=== PATIENT | female | born 1970 | race Caucasian/White ===

== ENCOUNTER → 2023-11-11 08:54 | Outpatient (REF) | payer OTHER, SELFPAY | LOC: WDC 08:54 | PROVIDERS: ATTENDING PHYSICIAN Obstetrics & Gynecology; FAMILY PHYSICIAN Family Medicine | DX: R92.2 Inconclusive mammogram (principal) | CPT/HCPCS: 76641 ==

== ENCOUNTER → 2024-02-03 19:19 | Outpatient (REF) | payer OTHER, SELFPAY | LOC: WDC 19:19 | PROVIDERS: ATTENDING PHYSICIAN Obstetrics & Gynecology; FAMILY PHYSICIAN Family Medicine | DX: Z12.31 Encounter for screening mammogram for malignant neoplasm of breast (principal) | CPT/HCPCS: 77063; 77067 ==

== ENCOUNTER 2024-09-04 15:51 | Emergency (ER) | payer OTHER, SELFPAY ==
[2024-09-04 16:04] VITALS: BP 122/81
[2024-09-04 18:48] VITALS: BP 121/82
[2024-09-04 20:04] VITALS: BMI 22.0
--- NOTE | 2024-09-04 20:36 | ED.GENMED ---
History of Present Illness
General
Chief Complaint: Bowel Problem
Source: patient
Exam Limitations: none
Time Seen by Provider: 09/04/24 20:24
History of Present Illness
History of Present Illness:
This is a 54 year old female that comes in with c/o constipation. States that she feels she has a fecal impaction. States that she doesn't remember the last time she had a BM but feels that this is a couple days ago. States that she has abd bloating
and nausea. States that she also has a headache. Denies any fever, chills, chest pain, SOB, vomiting, diarrhea, dizziness, urinary burning.
Past History
Past History
ED Past Medical History: Other (Back pain, Headache, Brain Aneurysm. Uterine fibroid, ); Negative Hypercholesterolemia, IDDM or NIDDM
ED Past Surgical History: Gynecological (Uterine Ablation, Hysterectomy) and Orthopedic (Right and left foot surgery)
Social History
Tobacco: Former smoker
Alcohol: Occasional
Drug: None
Personal:
Living: with family
Employment: Employed
Family History
Family History: Negative Early CAD
Phy Exam
General Physical Exam
General Presentation: mild distress
General age: appears stated age
General Skin: warm and dry
General Habitus: normal
General Mental: alert
General Hydration: appears well hydrated
ENT Exam
ENT Exam: TM's normal, pharynx normal and neck supple
Eye Exam
Eye Exam: EOMI
Cardiovascular Exam
Cardiovascular Exam: no edema, no murmur, normal peripheral pulses and tachycardia
Gastrointestinal Exam
Gastrointestinal Exam: soft, no organomegaly, no pulsatile mass, non distended, tender (States that her abd is sore left lower quadrant) and other (Hypoactive bowel sounds)
Musculoskeletal Exam
Musculoskeletal Exam: full ROM and no edema
Skin Exam
Skin Exam: normal color, warm/dry, no rash and no petechia
Psychiatric Exam
Psychiatric Exam: normal mood/affect
Course
Orders/Labs/Results
Orders:
Orders
09/04/24 20:35
Enema- Treatment ONCE
Type: Milk of Molasses
09/04/24 21:02
0.9% Sodium Chloride 1000 ml [Nss] 1,000 ml IV BOLUS
Iohexol [Omnipaque] See Protocol PO NOW STA
Test Result ONCE
09/04/24 21:27
Basic Metabolic Panel Urgent
Complete Blood Count/With Diff Urgent
HCG, Serum Qualitative Screen Urgent
09/05/24 00:30
CT Abd/pel W Iv And Oral Contr Urgent
Reason For Exam: Left sided abd pain
Abnormal Lab Results
09/04/24
21:27
RBC 4.19 L 10^6/uL
(4.20-5.40)
MCH 33.2 H pg
(27.0-31.0)
Absolute Neuts (auto) 8.1 H 10^3/uL
(1.4-6.5)
Absolute Lymphs (auto) 0.6 L 10^3/uL
(1.2-3.4)
Neutrophils % 88.7 H %
(42.2-75.2)
Lymphocytes % 6.0 L %
(20.5-51.1)
Glucose 108 H mg/dl
(70-99)
09/04/24 21:27
09/04/24 21:27
Glucose nonfasting. Otherwise normal albs. HCG negative.
Vital Signs
Initial and Last Documented VS:
Initial Vital Signs
Temp Pulse Resp BP Pulse Ox
97.7 F 118 16 122/81 99
09/04/24 16:04 09/04/24 16:04 09/04/24 16:04 09/04/24 16:04 09/04/24 16:04
Last Documented Vital Signs
Temp Pulse Resp BP Pulse Ox
97.8 F 92 16 123/78 96
09/04/24 18:48 09/05/24 00:23 09/05/24 00:23 09/05/24 00:23 09/05/24 00:23
MDM/Problems Addressed
Differential Diagnosis Includes:
Constipation
MDM/Problems Addressed:
This is a 54 year old female that comes in with c/o constipation. States that she really doesn't remember when she went to the bathroom but feels it is a couple of days.
Attempted to disimpact patient and was able to remove a small amount. Patient tried to have a BM but was unable. Will get Enema.
Back into see patient. Patient had wonderful results from Enema. Patient is still very tender in the left lower quadrant. States that she was also able to urinate. Will get labs and chest CT scan.
Back into see patient. Explained that there is mild amount of stool in the colon. Patient to increase her water intake to 8-8oz glasses daily. Suggest that patient use Miralax daily and she can also drink prune juice mixed with apple juice and heat
daily. Follow up with the family doctor. Return with any concerns.
Chronic conditions affecting care:
NA
Acute Exacerbation and/or Progression of Chronic Illness:
NA
*Radiology
Radiology exam reviewed: radiology read reviewed (CT night hawk- No bowel or renal obstruction. Oral contrast is reaches the ascending colon. Mild amount of stool in the colon. NO evidence of stool in the rectum. Normal appendix, Gallbladder is
unremarkable. Hysterectomy. Small amount of pelvic fluid. No free air. Degenerative changes spine. ) and other (CT cont- chronic left L5 pars defect. )
*Pulse Oximetry
Patient hypoxic: no
*EKG
Interpreted by ED Provider?: NA
Rate: EKG- N/A
*Claim Adjuster Interpretation
Rate: Claim Adjuster- N/A
*Critical Care Note
Total Time (30-74mins, 75-104mins- exclusive of procedures): Not Applicable
ED Attending Note
-
Portions of this chart may have been created with voice recognition software.� Occasional wrong word or��sound alike� substitutions may have occurred due to the inherent limitations of voice recognition software.
Discharge Plan
Departure
Patient Disposition: Home (Routine Discharge)
Date of Disposition: 09/05/24
Time of Disposition: 01:32
Patient with high blood pressure during this ER visit?: No
Condition: Good
Covid-19: Not Applicable
Discharge Problem:
Constipation
Instructions: Constipation, Adult (DC)
Prescriptions:
No Action
docusate sodium 100 MG capsule
100 mg PO BIDPRN PRN (Reason: constipation) Qty: 30 0RF
ibuprofen 600 MG tablet
600 mg PO Q4HPRN PRN (Reason: mild pain) Qty: 30 1RF
simethicone [Gas Relief 80 (simethicone)] 80 MG tablet,chewable
80 mg PO Q6HPRN PRN (Reason: gas distention) Qty: 30 0RF
oxycodone 5 MG tablet
5 mg PO Q4HPRN PRN (Reason: MODERATE PAIN) Qty: 25 0RF
oxycodone 10 MG tablet
10 mg PO Q4HPRN PRN (Reason: SEVERE PAIN) Qty: 0 0RF
sulfamethoxazole-trimethoprim 1 TABLET tablet
1 tab PO BID Qty: 0 0RF
Referrals:
Lamonte Proctor DO [Family Provider] - Call in 1-3 days for appt
Activity Restrictions/Additional Instructions:
As discussed, your blood work is normal. You have been given an enema with Good results. Your CT is negative for any acute process. Please increase your water intake to 8-8oz glasses daily. You may also try Prune juice mixed with apple juice in
equal amounts and heat and drink daily. You may try over the counter Miralax daily as directed. Follow up wtih the family doctor for recheck as needed. IF YOU HAVE ANY OTHER CONCERNS PLEASE RETURN TO THE EMERGENCY ROOM.
Interventions
Interventions:
*Risk Screen - Suicide Last Done: 09/04/24 20:04
*General Assessment Last Done: 09/04/24 20:04
*Neglect/Abuse Screening Last Done: 09/04/24 20:04
ED- Fall Risk Assessment Last Done: 09/04/24 20:04
*ED COVID-19 Vaccine History Last Done: 09/04/24 20:04
SS-Niadfd-Kgocemnhtv Assessment Last Done: 09/04/24 20:04
Discharge Date and Time
Print Language: OCCITAN
[2024-09-04] MEDS: OMNIPAQUE 50 ML PO (21:15)
[2024-09-04] MEDS: NSS 1000 IV (21:19)
[2024-09-04 21:38] LABS: % Basophils 0.3 % (0-2); % Immature Granulocytes 0.4 % (0-0.5); % Monocytes 4.6 % (1.7-9.3); % Neutrophils 88.7 % (42.2-75.2); Absolute Lymphocytes 0.6 10^3/uL (1.2-3.4); Absolute Monocytes 0.4 10^3/uL (0.1-0.6); Absolute Neutrophils 8.1 10^3/uL (1.4-6.5); Hematocrit 40.6 % (37.0-47.0); Hemoglobin 13.9 g/dL (12.0-16.0); Mean Corp Hgb Conc. 34.2 g/dL (33.0-37.0); Mean Corpuscular Hgb 33.2 pg (27.0-31.0); Mean Corpuscular Volume 96.9 fL (81.0-99.0); Mean Platelet Volume 9.7 fL (7.4-10.4); Nucleated Red Blood Cells % 0 %; Platelet Count 202 10^3/uL (130-400); Red Blood Cell Count 4.19 10^6/uL (4.20-5.40); White Blood Cell Count 9.1 10^3/uL (4.8-10.8)
[2024-09-04 21:57] LABS: HCG, Serum Qualitative Screen Negative
[2024-09-04 22:01] LABS: Blood Urea Nitrogen 15 mg/dl (7-17); Calcium 9.5 mg/dl (8.4-10.2); Carbon Dioxide 25 mmol/L (22-30); Chloride 104 mmol/L (98-107); Estimated Creatinine Clearance 78 ml/min; Glucose 108 mg/dl (70-99); Sodium 137 mmol/L (135-145); eGFR > 60.00
[2024-09-05 00:23] VITALS: BP 123/78
[2024-09-05 01:46] VITALS: BP 119/78
== END 2024-09-05 01:47 | disposition home or self-care (01) ==
LOC: EMR 15:51
PROVIDERS: Clinical Nurse Specialist Family Health; EMERGENCY PHYSICIAN Emergency Medicine; FAMILY PHYSICIAN Family Medicine
DX: K59.00 Constipation, unspecified (principal); Z87.891 Personal history of nicotine dependence
CPT/HCPCS: 99285; 96360; 74177; 80048; 84703; 85025; Q9967

== ENCOUNTER 2024-10-08 06:26 | Day surgery (SDC) | payer OTHER, SELFPAY | END 2024-10-08 08:36 | disposition home or self-care (01) | LOC: GI 06:26 | PROVIDERS: ATTENDING PHYSICIAN Internal Medicine; FAMILY PHYSICIAN Family Medicine | DX: Z12.11 Encounter for screening for malignant neoplasm of colon (principal); Q43.8 Other specified congenital malformations of intestine; K56.2 Volvulus; Z86.0101 Personal history of adenomatous and serrated colon polyps | CPT/HCPCS: G0105 ==

== ENCOUNTER → 2025-02-03 18:44 | Outpatient (REF) | payer OTHER, SELFPAY | LOC: WDC 18:44 | PROVIDERS: ATTENDING PHYSICIAN Obstetrics & Gynecology; FAMILY PHYSICIAN Family Medicine | DX: Z12.31 Encounter for screening mammogram for malignant neoplasm of breast (principal) | CPT/HCPCS: 77063; 77067 ==